=== PATIENT | male | born 1975 | race Caucasian/White ===

== ENCOUNTER 2021-06-25 13:26 | Emergency (ER) | payer SELFPAY ==
[2021-06-25] MEDS ORDERED: Ibuprofen 800 MG TAB ONE (15:03)
== END 2021-06-25 15:10 | disposition home or self-care (01) ==
LOC: MADERS 13:26
DX: S76.301A Unspecified injury of muscle, fascia and tendon of the posterior muscle group at thigh level, right thigh, initial encounter (principal); X50.9XXA Other and unspecified overexertion or strenuous movements or postures, initial encounter; F17.210 Nicotine dependence, cigarettes, uncomplicated
CPT/HCPCS: 99283